=== PATIENT | male | born 1990 | race African-American/Black ===

== ENCOUNTER 2017-05-27 14:10 | Emergency (ER) | payer OTHER ==
[2017-05-27 14:34] VITALS: BP 141/70
[2017-05-27] MEDS ORDERED: IBUPROFEN 800 MG TABLET PO ONE (14:52)
[2017-05-27] MEDS ORDERED: CYCLOBENZAPRINE HCL 10 MG TABLET PO ONE (14:53)
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
== END 2017-05-27 15:07 | disposition home or self-care (01) ==
LOC: ER 14:10
DX: M25.512 Pain in left shoulder (principal); M79.1 Myalgia; V49.40XA Driver injured in collision with unspecified motor vehicles in traffic accident, initial encounter; Y93.89 Activity, other specified; F17.290 Nicotine dependence, other tobacco product, uncomplicated; J45.909 Unspecified asthma, uncomplicated
CPT/HCPCS: 99283

== ENCOUNTER 2019-08-06 20:51 | Emergency (ER) | payer OTHER ==
[2019-08-06] MEDS ORDERED: IBUPROFEN 800 MG TABLET PO ONE (21:27)
--- NOTE | 2019-08-06 21:29 | ER Document Report ---
ED Medical Screen (RME) - General Chief Complaint: Flu Symptoms Stated Complaint: FLU LIKE SYMPTOMS Time Seen by Provider: 08/06/19 21:24 Notes: 29-year-old male presents with generalized body aches, fever, and nonproductive cough that started earlier today. Patient states he has been taking Tylenol and cold and flu with little relief. Lungs with very minimal wheezing. Patient does have a history of asthma. Regular rate and rhythm. I have greeted and performed a rapid initial assessment of this patient. A comprehensive ED assessment and evaluation of the patient, analysis of test results and completion of the medical decision making process with be conducted by additional ED providers. TRAVEL OUTSIDE OF THE [place] IN LAST 30 DAYS: No - Related Data Allergies/Adverse Reactions: No Known Allergies Allergy (Verified 08/06/19 21:21) Past Medical History Pulmonary Medical History: Reports: Hx Asthma, Hx Bronchitis Renal/ Medical History: Denies: Hx Peritoneal Dialysis Musculoskeltal Medical History: Reports Hx Musculoskeletal Trauma Traumatic Medical History: Reports: Hx Fractures - Thumb Physical Exam - Vital signs Vitals: Temp Pulse Resp BP Pulse Ox 101.1 F H 100 18 152/78 H 91 L 08/06/19 20:59 08/06/19 20:59 08/06/19 20:59 08/06/19 20:59 08/06/19 20:59 Course - Vital Signs Vital signs: Temp Pulse Resp BP Pulse Ox 101.1 F H 100 18 152/78 H 91 L 08/06/19 20:59 08/06/19 20:59 08/06/19 20:59 08/06/19 20:59 08/06/19 20:59
--- NOTE | 2019-08-06 22:09 | RADIOLOGY REPORT (SQ) ---
EXAM DESCRIPTION: XR CHEST 2 VIEWS COMPLETED DATE/TME: 08/06/2019 21:27 CLINICAL HISTORY: 29 years, Male, cough, fever COMPARISON: X-ray chest 05/06/2017 NUMBER OF VIEWS: TECHNIQUE: LIMITATIONS: None. FINDINGS: No evidence of pulmonary infiltrate or pleural effusion. The heart and mediastinum are unremarkable. Pulmonary vascularity appears normal. There is no significant change, as compared with the prior x-ray(s). IMPRESSION: No acute finding. copyright 2010 [employer]- All Rights Reserved
[2019-08-06 22:12] LABS: A TYPE INFLUENZA AG NEGATIVE (NEGATIVE); B INFLUENZA AG NEGATIVE (NEGATIVE)
[2019-08-07 00:28] VITALS: BP 169/69
[2019-08-07] MEDS ORDERED: DEXAMETHASONE 4 MG TABLET PO ONE (02:34)
--- NOTE | 2019-08-07 02:34 | ER Document Report ---
ED General - General Chief Complaint: Flu Symptoms Stated Complaint: FLU LIKE SYMPTOMS Time Seen by Provider: 08/06/19 21:24 Mode of Arrival: Ambulatory Information source: Patient TRAVEL OUTSIDE OF THE [place] IN LAST 30 DAYS: No - HPI Onset: Other - gradually Onset/Duration: Gradual Quality of pain: Burning Severity: Moderate Pain Level: 1 Associated symptoms: Nonproductive cough, Fever, Sore throat, Sweating Exacerbated by: Denies Relieved by: Denies Similar symptoms previously: No Recently seen / treated by doctor: No Notes: 29 year old male with a history of asthma here for several days of a sore throat and one day of a cough, sweats, and fevers. He is having some chest congestion and wheezing as well. The patient denies known sick contacts. The patient had an MSE exam before I saw him and he tested positive for Strep. - Related Data Allergies/Adverse Reactions: No Known Allergies Allergy (Verified 08/06/19 21:21) Past Medical History - General Information source: Patient - Social History Smoking Status: Current Every Day Smoker Chew tobacco use (# tins/day): No Frequency of alcohol use: Occasional Drug Abuse: None Family History: Arthritis, DM, Hypertension, Malignancy. denies: Hyperlipidemia Patient has suicidal ideation: No Patient has homicidal ideation: No Pulmonary Medical History: Reports: Hx Asthma, Hx Bronchitis Renal/ Medical History: Denies: Hx Peritoneal Dialysis Musculoskeletal Medical History: Reports Hx Musculoskeletal Trauma Traumatic Medical History: Reports: Hx Fractures - Thumb Review of Systems - Review of Systems Constitutional: Fever EENT: Throat pain, Other - horse voice Cardiovascular: No symptoms reported Respiratory: Cough, Wheezing Gastrointestinal: No symptoms reported Genitourinary: No symptoms reported Male Genitourinary: No symptoms reported Musculoskeletal: No symptoms reported Skin: Other - sweating Hematologic/Lymphatic: No symptoms reported Neurological/Psychological: No symptoms reported -: Yes All other systems reviewed and negative Physical Exam - Vital signs Vitals: Temp Pulse Resp BP Pulse Ox 101.1 F H 100 18 152/78 H 91 L 08/06/19 20:59 08/06/19 20:59 08/06/19 20:59 08/06/19 20:59 08/06/19 20:59 - Notes Notes: GENERAL: Well-appearing, well-nourished and in no acute distress. HEAD: Atraumatic, normocephalic. EYES: Pupils equal round and reactive to light, extraocular movements intact, sclera anicteric, conjunctiva are normal. ENT: Nares patent, oropharynx erythematous without exudates. Mild swelling of both tonsils and uvula. Moist mucous membranes. NECK: Normal range of motion, supple without lymphadenopathy or JVD. LUNGS: Breath sounds clear to auscultation bilaterally and equal. No wheezes rales or rhonchi. HEART: Regular rate and rhythm without murmurs, rubs or gallops. ABDOMEN: Soft, nontender, normoactive bowel sounds. No guarding, no rebound. No masses appreciated. EXTREMITIES: Normal range of motion, no pitting or edema. No clubbing or cyanosis. NEUROLOGICAL: Cranial nerves II through XII grossly intact. Normal speech, normal gait. PSYCH: Normal mood, normal affect. SKIN: Warm, Dry, normal turgor, no rashes or lesions noted. Course - Re-evaluation Re-evalutation: 08/07/19 02:42 Patient has Strep throat. He was given Motrin in triage and he was treated with IM Penicillin and oral Decadron in the ER by me. Patient had a chest xray and flu swab performed before I saw him which were both normal/negative. Patient told to orally hydrate and to follow up with a PCP if symptoms persisted. Patient has no signs of a paratonsilar abscess on exam. - Vital Signs Vital signs: Temp Pulse Resp BP Pulse Ox 98.9 F 83 18 169/69 H 93 08/07/19 01:35 08/07/19 00:27 08/07/19 00:27 08/07/19 00:27 08/07/19 00:27 - Diagnostic Test Radiology reviewed: Image reviewed, Reports reviewed Discharge - Discharge Clinical Impression: Strep pharyngitis, Cough Condition: Stable Disposition: HOME, SELF-CARE Instructions: Cough Suppressant & Expectorant Medications, Strep Throat ([facility]) Additional Instructions: Drink plenty of fluids in the days to come. Use Tylenol and Motrin for fevers and pain. Follow up with your primary care doctor or the clinic provided in your paperwork if symptoms persist.
[2019-08-07] MEDS ORDERED: PENICILLIN G BENZATHINE 1.2 MILLION UNIT/2 ML DISP.SYRIN IM ONE (02:35)
== END 2019-08-07 03:20 | disposition home or self-care (01) ==
LOC: ER 20:51
DX: J02.0 Streptococcal pharyngitis (principal); R05 Cough; R50.9 Fever, unspecified; R09.89 Other specified symptoms and signs involving the circulatory and respiratory systems; R49.0 Dysphonia; J45.909 Unspecified asthma, uncomplicated; F17.200 Nicotine dependence, unspecified, uncomplicated
CPT/HCPCS: 87880; 87804; 71046; J8540; J0561